=== PATIENT | female | born 1995 | race Caucasian/White ===

== ENCOUNTER 2016-12-16 16:22 | Emergency (ER) | payer OTHER ==
[2016-12-16] MEDS ORDERED: HYDROMORPHONE HCL INJ/PF 2 MG/ML AMPULE IV ONE (16:31)
[2016-12-16] MEDS ORDERED: ONDANSETRON HCL INJ/PF 4 MG/2 ML SDV IV ONE ×2 (16:31→19:31)
[2016-12-16] MEDS ORDERED: FENTANYL CITRATE INJ/PF 100 MCG/2 ML AMPUL IV ONE ×3 (17:12→19:55)
[2016-12-16 17:16] LABS: ABSOLUTE EOSINOPHILS # (AUTO) 0.1 10^3/uL (0.0-0.6); ABSOLUTE LYMPHOCYTES (AUTO) 2.9 10^3/uL (0.5-4.7); ABSOLUTE MONOCYTES (AUTO) 0.6 10^3/uL (0.1-1.4); ABSOLUTE NEUT (AUTO) 4.6 10^3/uL (1.7-8.2); BASOPHILS % (AUTO) 0.4 % (0-2); EOSINOPHILS % (AUTO) 1.4 % (0-6); HEMOGLOBIN 13.3 g/dL (12.0-15.5); HGB HCT DIFFERENCE 0.9; MEAN CORPUSCULAR HEMOGLOBIN 28.2 pg (27.0-33.4); MEAN CORPUSCULAR HGB CONC 34.2 g/dL (32.0-36.0); MEAN CORPUSCULAR VOLUME 83 fl (80-97); MONOCYTES % (AUTO) 6.8 % (3-13); RED BLOOD COUNT 4.73 10^6/uL (3.72-5.28); RED CELL DISTRIBUTION WIDTH 12.7 % (11.5-14.0); SEGMENTED NEUTROPHILS % (AUTO) 56.4 % (42-78); WHITE BLOOD COUNT 8.1 10^3/uL (4.0-10.5)
--- NOTE | 2016-12-16 17:30 | RADIOLOGY REPORT (SQ) ---
EXAM DESCRIPTION: CT FACIAL AREA WITHOUT COMPLETED DATE/TIME: 12/16/2016 5:03 pm REASON FOR STUDY: Fell and hit jaw,? Dislocation. COMPARISON: None. TECHNIQUE: Noncontrasted images through the facial bones and orbits windowed for bone and soft tissu e. Additional coronal and sagittal reconstructed images reviewed. All images stored on PACS. All CT scanners at this facility use dose modulation, iterative reconstruction, and/or weight based d osing when appropriate to reduce radiation dose to as low as reasonably achievable (ALARA). [facility]: Dose Right [facility]: CareDose [facility]: Dose Right [facility]: Teradose 4D [facility]: [employer] RADIATION DOSE: Up-to-date CT equipment and radiation dose reduction techniques were employed. CTDIv ol: 30.4 mGy. DLP: 579 mGy-cm. mGy. LIMITATIONS: None. FINDINGS: FACIAL BONES: There is a fracture of body of the mandible anteriorly in the midline which extends obliquely involving the body of the mandible to the left of midline. There are fractures of the condylar processes of the mandible bilaterally with angulation in relation to the remaining eze bular rami bilaterally. No other evidence for fracture is seen. ORBITS: Intact. No fracture. Symmetric intact globes and retroorbital soft tissues. PARANASAL SINUSES: Clear. No significant mucosal thickening, mass or fluid. No nasal polyps. Maxill alexander sinus outlets are patent. SOFT TISSUES: No mass or edema. INFERIOR BRAIN: Limited view. No acute findings. OTHER: No other significant finding. IMPRESSION: Mandibular fractures as noted above. No other evidence for fracture is seen. Other fin dings as noted above TECHNICAL DOCUMENTATION: JOB ID: [id number] Quality ID # [id number]: Final reports with documentation of one or more dose reduction techniques (e.g., Au tomated exposure control, adjustment of the mA and/or kV according to patient size, use of iterative reconstruction technique) 2010 [employer]- All Rights Reserved
[2016-12-16 17:34] LABS: ANION GAP 15 (5-19); BLOOD UREA NITROGEN 16 mg/dL (7-20); CALCIUM 9.3 mg/dL (8.4-10.2); CARBON DIOXIDE 21 mmol/L (22-30); CHLORIDE 104 mmol/L (98-107); CREATININE RESULT 0.74 mg/dL (0.52-1.25); GLUCOSE 108 mg/dL (75-110); POTASSIUM 3.5 mmol/L (3.6-5.0); SODIUM 139.9 mmol/L (137-145)
--- NOTE | 2016-12-16 17:54 | ER Document Report ---
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 She fell to the floor and hit her chin in some uncertain fashion. She has fractured a couple of teeth, including specifically the upper left central incisor, tooth #9, and appears to have dislocation of the mandible. She had a superficial, irregular laceration of the right chin. Denies any pain or other injury from her neck down. Denies difficulty breathing. Denies chest pain. Denies any vomiting or diarrhea. - Related data Allergies/Adverse Reactions: No Known Allergies Allergy (Unverified 12/16/16 18:50) Past Medical History - Social History Smoking Status: Unknown if Ever Smoked Cigarette use (# per day): No Family History: Reviewed & Not Pertinent Review of Systems - Review of Systems Notes: Unable to answer all questions very well because of the appearance and pain of her jaws. REVIEW OF SYSTEMS: CONSTITUTIONAL : Denies fever. EENT: See HPI. CARDIOVASCULAR: Denies chest pain. RESPIRATORY: Denies cough, chest congestion, or shortness of breath. GASTROINTESTINAL: Denies abdominal pain or nausea, vomiting, or diarrhea. GENITOURINARY: Denies difficulty or painful urinating, urinary frequency, blood in urine. MUSCULOSKELETAL: Denies back or neck pain. Denies joint pain or swelling. SKIN: Denies rash or skin lesions. NEUROLOGICAL: No seizure activity reported. Denies headache. Denies sensory loss or motor deficits. ALL OTHER SYSTEMS REVIEWED AND NEGATIVE. Physical Exam - Vital signs Vitals: Pulse Ox 100 12/16/16 16:27 Interpretation: Normal, Other - Blood pressure 94/49, but not tachycardic. Patient is very small, diminutive stature Notes: PHYSICAL EXAMINATION: GENERAL: Patient with an injury to the jaw and face resulting in her mouth open and appearing as if her jaw is dislocated. HEAD: Atraumatic, normocephalic. No hematomas or other lesions of the patient' s scalp. EYES: Pupils equal round and reactive to light, extraocular movements intact. ENT: oropharynx clear without exudates. Moist mucous membranes. NECK: Normal range of motion, supple. Nontender to any of the posterior spinous processes. LUNGS: Breath sounds clear and equal bilaterally. HEART: Regular rate and rhythm without murmurs. ABDOMEN: Soft, nontender. No guarding or rebound. BACK: No tenderness throughout entire back. EXTREMITIES: Normal range of motion without pain. NEUROLOGICAL: Normal sensory, motor, and reflex exams. Awake, alert, and oriented x3. SKIN: Warm, dry, no rashes. Course - Re-evaluation Re-evalutation: 12/17/16 00:16 Dr. meyer was investigation specialist for oral surgery and I contacted him and he came and saw the patient and reviewed the CTs. He feels the patient needs to be treated in a facility accustomed to taking care of patients with this kind of trauma. This is not a routine mandibular fracture that we see in the emergency department. Being bilateral, the fractures will likely result in some mental occlusive disorder in the best of circumstances. He wishes to refer the patient to a fellow oral surgeon in [place]. However, Dr. Peters is not investigation specialist and we were putting contact with , who is on-call for oral surgery. It was agreed that the patient would come to the [facility] in [place] tomorrow morning at 11:00. Plan for surgery tomorrow afternoon. - Vital Signs Vital signs: Temp Pulse Resp BP Pulse Ox 13 113/68 100 12/16/16 20:01 12/16/16 20:01 12/16/16 20:01 - Laboratory Result Diagrams: 12/16/16 17:04 12/16/16 17:04 Laboratory results interpreted by me: 12/16/16 17:04 Potassium 3.5 L Carbon Dioxide 21 L - Diagnostic Test Radiology reviewed: Image reviewed, Reports reviewed - CT shows a fracture of the left body of the mandible and then bilateral as if it is dislocated. Discharge - Discharge Clinical Impression: Fracture of mandible Condition: Stable Disposition: HOME, SELF-CARE Additional Instructions: Fractured Mandible You have a fracture of the jaw bone, called the mandible. The fracture will take three to four weeks to heal. It will require special attention to be sure it heals correctly. If it doesn't stay in correct position, the teeth won' t fit together. At first, the injured area should be cold-packed frequently. Rest in a semi-sitting position if possible. When pain and swelling subside, you can return to most activities. Do not participate in sports for four weeks. If the specialist allows you to use the jaw, you should begin with liquids. Go on to puddings and purees when approved. You'll be referred to a specialist who will determine the proper treatment for this fracture. Call or return if you are having any problems. You are to meet Dr. Gurmeet Henry at the [facility] at [facility] at 11:00 tomorrow. Rocephin You have been given an injection of an antibiotic called Rocephin ( ceftriaxone). Sometimes the injection must be combined with antibiotic pills. For some infections, such as an uncomplicated ear infection, Rocephin provides all the antibiotic that's needed. The antibiotic will be in your body for about two days. For serious infections, we usually repeat doses of Rocephin daily. Side effects are very unusual following a shot. Women may develop vaginal yeast infections, and babies can get yeast (thrush) in the mouth following the use of antibiotics. Contact your physician if you have symptoms with this medication. Allergy to this antibiotic can result in hives, wheezing, faintness, or itching. If symptoms of allergy occur, call the doctor at once. Antinausea Medication You have been given a medication to suppress nausea and vomiting. This type of medication can be given as a shot, pill, or suppository. It will usually last for many hours. Pills and shots usually last six to eight hours, suppositories last about 12 hours. For the typical illness, only one or two doses of the medication may be necessary. Mild lightheadedness may occur. This type of medicine can cause drowsiness. Do not drive or operate dangerous machinery while under its influence. Do not mix with alcohol. See your doctor at once if you have muscle spasms or tightness, or uncontrollable motions (particularly of the neck, mouth, or jaw). Persistent vomiting or severe lightheadedness should also be evaluated by the physician. Oral Narcotic Medication You have been given a prescription for pain control. This medication is a narcotic. It's best taken with food, as nausea can result if taken on an empty stomach. Don't operate machinery or drive within six hours of taking this medication. Do not combine this medicine with alcohol, or with any medication which can cause sedation (such as cold tablets or sleeping pills) unless you get permission from the physician. Narcotics tend to cause constipation. If possible, drink plenty of fluids and eat a diet high in fiber and fruits. Ice Packs Apply ice packs frequently against the painful area. Many different schedules are recommended, such as "20 minutes on, 20 minutes off" or "one hour ice, two hours rest." If you need to work, you may need to go longer between ice treatments. You should plan to have the area ice packed AT LEAST one fourth of the time. The ice should be applied over the wrap, tape, or splint, or over a layer of cloth -- not directly against the skin. Some ice bags have a built-in cloth and can be put directly on the skin. Elevate the Injury Because of the nature of your injury, elevation will be helpful to reduce swelling. This also reduces infection risk in wounds. Keep the injury up above the level of your heart for at least the next 48 hours (or longer if the physician recommends it). You will need to try to sleep in an upright position. Apply ice packs to the sides of your face throughout the night. If you develop any difficulty breathing or swelling under your tongue or in your neck, return immediately for us to reevaluate your condition. Prescriptions: Hydrocodone/Acetaminophen [Lortab 7.5-325 mg/15 ml Oral Soln] 10 ml PO Q6HP PRN #90 ml PRN Reason: Ondansetron [Zofran Odt 4 mg Tablet] 1 - 2 tab PO Q4H PRN #15 tab.rapdis PRN Reason: For Nausea/Vomiting Referrals: ALFREDA JULIEN PA-C [Primary Care Provider] - Follow up as needed
[2016-12-16] MEDS ORDERED: CEFTRIAXONE 1 GM/D5W RTU 1 GM/50 ML RTUPB IV ONE (18:23)
[2016-12-16] MEDS ORDERED: DEXTROSE 5%-1/2 NORMAL SALINE 1,000 ML IV ONE (18:24)
[2016-12-16] MEDS ORDERED: DEXAMETHASONE SOD PHOS INJ 10 MG/1 ML VIAL IV ONE (20:09)
[2016-12-16] MEDS ORDERED: KETOROLAC TROMETHAMINE INJ/PF 30 MG/1 ML SDV IV ONE (20:10)
[2016-12-16] MEDS ORDERED: KETOROLAC TROMETHAMINE INJ/PF 30 MG/1 ML SDV ONE (20:13)
[2016-12-16] MEDS ORDERED: DEXAMETHASONE SOD PHOSPHATE INJ 4 MG/1 ML VIAL ONE (20:13)
[2016-12-16 20:58] VITALS: BP 113/68
--- NOTE | 2016-12-17 08:18 | EKG REPORT ---
SEVERITY:- ABNORMAL ECG - SINUS TACHYCARDIA FIRST DEGREE AV BLOCK NONSPECIFIC ST-T CHANGES LATERAL LEADS : Confirmed by: Daniel Sharma MD 17-Dec-2016 08:17:54
== END 2016-12-16 20:30 | disposition home or self-care (01) ==
LOC: ER 16:22
DX: R55 Syncope and collapse (principal); S02.602A Fracture of unspecified part of body of left mandible, initial encounter for closed fracture; W18.39XA Other fall on same level, initial encounter; Y92.219 Unspecified school as the place of occurrence of the external cause
CPT/HCPCS: 93005; 96376; 99285; 96375; 96365; 96367; 36415; 85025; 80048; 70486; 93010; J3010; J1885; J1170; J2405; J0696; J1100